=== PATIENT | male | born 1965 | race Caucasian/White ===

== ENCOUNTER 2022-07-02 14:17 | Emergency (ER) | payer BC, SELFPAY ==
[2022-07-02 14:20] VITALS: BP 152/91; PULSE 90; RESP 18; TEMP 36.9; O2SAT 97; BMI 38.3
--- NOTE | 2022-07-02 14:44 | W.ED.ABDPA2 ---
HPI - Abdominal Pain General: Chief Complaint: Abdominal Pain Stated Complaint: n/v/d/abd pain; hx of colitis Time Seen by Provider: 07/02/22 14:44 Source: patient Mode of arrival: ambulatory Limitations: no limitations History of Present Illness: 57-year-old male presents emergency complaining of left lower quadrant pain that began 2 days ago he continues to have normal bowel movements 1-2 episodes he is nauseous and vomited a little has not had any fever. He has had this in the past. Denies any hematochezia or melena. MD elicited complaint: abdominal pain Pertinent past history: diverticulitis Onset (ago): day(s) (2) Pain Consistency: constant Location: LLQ Quality: cramping Radiation: none Migration to: no migration Exacerbating factors: nothing Relieving factors: nothing Associated Symptoms: Reports bloating, nausea and poor appetite; Denies anorexia, belching, change in bowel habits, change in stool character, chills, coffee ground emesis, constipation, GI cramping, diarrhea, dyspepsia, dysuria, excessive flatus, fever(s), heartburn, hematochezia, hematuria, hematemesis, fecal incontinence, loose stools, melena, syncope and vomiting Review of Systems Const: Reports: fatigue; Denies: fever(s), chills or malaise ENMT: Denies: throat pain, ear or mastoid pain, nasal discharge or nasal congestion Card: Denies: syncope Resp: Denies: dyspnea, productive cough or non-productive cough GI: Reports: abdominal pain, nausea and bloating; Denies: vomiting, hematemesis, coffee ground emesis, heartburn, diarrhea, constipation, GI cramping, belching, excessive flatus, fecal incontinence, change in bowel habits, change in stool character, hematochezia or melena : Denies: flank pain, difficulty urinating, dysuria, urinary frequency, urinary urgency or hematuria Musc: Denies: neck pain, back pain or extremity pain Skin/Breast: Denies: rash or pruritus PFSH ED PFSH: Medical History Anxiety Essential hypertension Surgical History History of bilateral carpal tunnel release Hx of sinus surgery Hx of tooth extraction Family History Other Hypertension Social History Smoking and tobacco status: never smoked Physical Exam Const: COMMON NORMALS: no acute distress GENERAL APPEARANCE: cooperative and comfortable ORIENTATION/CONSCIOUSNESS: Yes awake, Yes oriented to person, Yes oriented to place and Yes oriented to time HENMT: COMMON NORMALS: normocephalic, atraumatic and hearing grossly normal bilaterally HEAD & SCALP: normocephalic and atraumatic Resp: COMMON NORMALS: normal respiratory effort, No retractions, No use of accessory muscles and clear to auscultation bilaterally AUSCULTATION: clear to auscultation bilaterally Cardio: COMMON NORMALS: regular rate, regular rhythm and No murmurs present (Cardio) RATE: regular rate RHYTHM: regular rhythm GI: COMMON NORMALS: No hepatosplenomegaly present AUSCULTATION: Yes normoactive bowel sounds PALPATION: Yes Tenderness to palpation present (GI) Details: LLQ, No Guarding due to palpation present (GI) and Yes No hepatosplenomegaly present Extremity: COMMON NORMALS: normal to inspection, capillary refill normal, no clubbing, cyanosis or edema, no calf tenderness and no pedal edema Neuro: SENSORIUM/ORIENTATION: Yes oriented to person, Yes oriented to place and Yes oriented to time Skin: COMMON NORMALS: no rashes or lesions noted GENERAL SKIN EXAM: no rashes or lesions noted Course Vital Signs: Vital signs: Vital Signs Temperature 98.4 F 07/02/22 14:20 Pulse Rate 94 07/02/22 15:00 Respiratory Rate 17 07/02/22 15:00 Blood Pressure 154/93 07/02/22 15:00 Pulse Oximetry 99 07/02/22 15:00 Oxygen Delivery Me thod 07/02/22 14:47 MDM - Abdominal Pain Medical Decision Making Based on history and exam patient most likely has diverticulitis CT is not likely to contribute to treatment course. He is afebrile he does not any peritoneal signs although he is moderately tender in that left lower quadrant. We will start him on Cipro and Flagyl full liquid diet give promethazine hydrocodone to use for discomfort and nausea and follow-up with his primary care doctor return if is worsening symptoms. Medical Records I reviewed the patient's medical records. Lab Data I reviewed the patient's lab results. Discharge Plan Discharge Patient Disposition: Home Clinical Impression: Diverticulitis Condition: Stable Prescriptions: New hydrocodone-acetaminophen 5-325 mg tablet 1 tab PO Q6H PRN (Reason: pain) Qty: 10 0RF promethazine 25 mg tablet 25 mg PO Q6H PRN (Reason: nausea and vomiting) Qty: 20 0RF Cipro 500 mg tablet 500 mg PO BID Qty: 14 0RF metronidazole 500 mg tablet 500 mg PO BID 7 Days Qty: 14 0RF Discontinued amoxicillin-pot clavulanate 875-125 mg tablet 1 tab PO BID 7 Days Qty: 14 0RF No Action celecoxib [Celebrex] 100 mg capsule 100 mg PO BID Qty: 60 3RF hydrochlorothiazide 25 mg tablet 25 mg PO DAILY Qty: 30 1RF prednisone 20 mg tablet 20 mg PO DAILY 7 Days Qty: 7 0RF citalopram 20 mg tablet 20 mg PO DAILY diazepam 10 mg tablet 10 mg PO BID PRN ibuprofen 800 mg tablet 800 mg PO TID Discharge Orders: Discharge ED (Routine); Ordered 07/02/22 Ordered By: Elias Simmons Discharge Diet: Full LIquid Discharge Activity: Increase activity as tolerated Patient Instructions: Opioid Safety Activity Restrictions/Additional Instructions: Liquid diet for the next 48 hours and advance as tolerated follow-up with your primary care doctor within the next week if symptoms worsen recheck syndrome. Coding Level of Care Code ED Technical Associate for Sharda Gerard
[2022-07-02 14:47] VITALS: BP 153/97; PULSE 94; RESP 19; O2SAT 99
[2022-07-02 15:00] VITALS: BP 154/93; PULSE 94; RESP 17; O2SAT 99
== END 2022-07-02 15:02 | disposition home or self-care (01) ==
PROVIDERS: Emergency Provider Family Medicine
DX: K57.92 Diverticulitis of intestine, part unspecified, without perforation or abscess without bleeding (principal); I10 Essential (primary) hypertension
CPT/HCPCS: 99284

== ENCOUNTER → 2022-07-06 11:48 | Outpatient (BNVA) | payer BC, SELFPAY | PROVIDERS: Visit Provider Nurse Practitioner Family | DX: K57.92 Diverticulitis of intestine, part unspecified, without perforation or abscess without bleeding (principal); R19.8 Other specified symptoms and signs involving the digestive system and abdomen | CPT/HCPCS: 80053; 82040; 84270; 84403; 85025; 86140; 86618; 86666; 86757 ==

== ENCOUNTER → 2022-10-21 14:43 | Outpatient (BNVA) | payer MEDICAID, SELFPAY | PROVIDERS: PCP Nurse Practitioner Family; Visit Provider Nurse Practitioner | DX: S99.921A Unspecified injury of right foot, initial encounter (principal); X58.XXXA Exposure to other specified factors, initial encounter | CPT/HCPCS: 73630 ==

== ENCOUNTER → 2023-04-06 10:28 | Outpatient (BNVA) | payer MEDICAID, SELFPAY | PROVIDERS: PCP Nurse Practitioner Family; Referring Provider Nurse Practitioner; Visit Provider Student in an Organized Health Care Education/Training Program | DX: M16.12 Unilateral primary osteoarthritis, left hip (principal) | CPT/HCPCS: 73502 ==

== ENCOUNTER → 2023-06-15 13:39 | Outpatient (BNVA) | payer MEDICAID, SELFPAY | PROVIDERS: PCP Nurse Practitioner Family; Visit Provider Nurse Practitioner Family | DX: M16.12 Unilateral primary osteoarthritis, left hip (principal) | CPT/HCPCS: 73502 ==

== ENCOUNTER → 2025-10-21 10:13 | Outpatient (BNVA) | payer MEDICAID, SELFPAY | PROVIDERS: PCP Nurse Practitioner Family; Visit Provider Nurse Practitioner Family | DX: I10 Essential (primary) hypertension (principal) | CPT/HCPCS: 80053; 85025 ==